=== PATIENT | female | born 1985 | race Caucasian/White ===

== ENCOUNTER 2018-08-30 09:31 | Emergency (ER) | payer OTHER ==
[2018-08-30 10:07] VITALS: BP 133/70
--- NOTE | 2018-08-30 10:22 | UC ---
Ear Complaint HPI - HPI Summary HPI Summary: Ear pressure with hearing loss for about a month. Some pressure but no pain. No recent cold or cough. No congestion or fever. - History of Current Complaint Chief Complaint: UCEar Stated Complaint: EAR COMPLAINT Time Seen by Provider: 08/30/18 10:13 Hx Obtained From: Patient ?: Yes - No contractions and baby is moving as normal. Onset/Duration: Gradual Onset, Lasting Weeks Severity Initially: Mild Severity Currently: Mild Pain Intensity: 0 Aggravating Factors: Nothing Alleviating Factors: Nothing Associated Signs/Symptoms: Positive: Hearing Loss. Negative: URI Symptoms - Allergies/Home Medications Allergies/Adverse Reactions: Allergies Allergy/AdvReac Type Severity Reaction Status Date / Time pantoprazole [From Protonix] AdvReac blurry Verified 08/30/18 10:07 vision wey AdvReac Constipatio Uncoded 08/30/18 10:07 n Home Medications: Home Medications NK [No Home Medications Reported] 08/30/18 [History Confirmed 08/30/18] PMH/Surg Hx/FS Hx/Imm Hx Previously Healthy: Yes - Surgical History Surgical History: Yes Surgery Procedure, Year, and Place: 2 L shoulder surgeries, 3 c-sections - Family History Known Family History: Positive: Other - No ENT related disease. - Social History Lives: With Family Alcohol Use: None Substance Use Type: None Smoking Status (MU): Never Smoked Tobacco Review of Systems All Other Systems Reviewed And Are Negative: Yes ENT: Positive: Ear Ache Is Patient Immunocompromised?: No Physical Exam Triage Information Reviewed: Yes Appearance: Well-Appearing, No Pain Distress, Well-Nourished Vital Signs: Initial Vital Signs Temp 98 F 08/30/18 10:04 Pulse 112 08/30/18 10:04 Resp 18 08/30/18 10:04 BP 133/70 08/30/18 10:04 Pulse Ox 100 08/30/18 10:04 Vital Signs Reviewed: Yes Eyes: Positive: Conjunctiva Clear ENT: Positive: Pharynx normal, Uvula midline, Other - Left tm normal but right tm obscured by wax. No canal tenderness, swelling or redness.. Negative: Pharyngeal erythema, Nasal congestion, Nasal drainage, TM bulging, TM dull, TM red, Tonsillar swelling, Tonsillar exudate, Trismus Neck: Positive: Supple, Nontender, No Lymphadenopathy Respiratory: Positive: Lungs clear, Normal breath sounds, No respiratory distress, No accessory muscle use. Negative: Respiratory distress, Decreased breath sounds, Accessory muscle use, Crackles, Rhonchi, Stridor, Wheezing Cardiovascular: Positive: No Murmur, Pulses Normal, Brisk Capillary Refill Abdomen Description: Positive: No Organomegaly, Soft. Negative: Distended, Guarding Musculoskeletal: Positive: Strength Intact, ROM Intact, No Edema Neurological: Positive: Alert, Muscle Tone Normal. Negative: Fatigued Psychological: Positive: Age Appropriate Behavior Skin: Negative: Rashes Re-Evaluation - Re-Evaluation First Eval Change: Improved - She can hear better now and less pressure. There is no canal redness and Tm is clear. Ear Complaint Course/Dx - Differential Dx/Diagnosis Differential Diagnosis/HQI/PQRI: Cerumen Impaction Provider Diagnosis: Cerumen impaction Discharge - Sign-Out/Discharge Documenting (check all that apply): Patient Departure All imaging exams completed and their final reports reviewed: No Studies - Discharge Plan Condition: Good Disposition: HOME Patient Education Materials: Cerumen Impaction (ED), Carbamide Peroxide (Into the ear) Referrals: No Primary Care Phys,NOPCP [Primary Care Provider] - - Billing Disposition and Condition Condition: GOOD Disposition: Home
== END 2018-08-30 10:42 | disposition home or self-care (01) ==
LOC: UCCORT 09:31
DX: H61.21 Impacted cerumen, right ear (principal); Z88.1 Allergy status to other antibiotic agents
CPT/HCPCS: 99202; G0463

== ENCOUNTER 2019-01-05 21:12 | Emergency (ER) | payer OTHER ==
[2019-01-05 22:11] VITALS: BP 107/43
--- NOTE | 2019-01-05 22:18 | UC ---
Back Pain HPI - HPI Summary HPI Summary: 33-year-old female her old female who had some burning while urinating. She states she also has some mild white vaginal discharge. No history of sexually transmitted diseases. - History of Current Complaint Chief Complaint: UCBackPain Stated Complaint: URINARY Time Seen by Provider: 01/05/19 22:17 Hx Obtained From: Patient ?: No Onset/Duration: Gradual Onset Timing: Intermittent Severity Initially: Mild Severity Currently: Mild Pain Intensity: 8 Character: Sharp - Patient describes a sharp pain at her urethra. She is sexually active with a female but they do not use any kind of equipment for sexual intercourse that could cause damage to the area. Aggravating Factor(s): Other - Some mild burning on urination. Alleviating Factor(s): Nothing Associated Signs And Symptoms: Positive: Negative - Allergies/Home Medications Allergies/Adverse Reactions: Allergies Allergy/AdvReac Type Severity Reaction Status Date / Time metronidazole [From Flagyl] Allergy Anaphylatic Verified 01/05/19 22:11 Shock pantoprazole [From Protonix] AdvReac blurry Verified 01/05/19 22:11 vision wey AdvReac Constipatio Uncoded 01/05/19 22:11 n PMH/Surg Hx/FS Hx/Imm Hx Previously Healthy: Yes - Surgical History Surgical History: Yes Surgery Procedure, Year, and Place: 2 L shoulder surgeries, 4 c-sections - Family History Known Family History: Positive: Other - No ENT related disease. - Social History Occupation: Student Alcohol Use: Rare Substance Use Type: None Smoking Status (MU): Never Smoked Tobacco Review of Systems All Other Systems Reviewed And Are Negative: Yes Genitourinary: Positive: Vaginal/Penile Burning - Patient describes the pain more as "pain at my urethra", Other - Mild burning on urination Is Patient Immunocompromised?: No Physical Exam Triage Information Reviewed: Yes Appearance: Well-Appearing, No Pain Distress, Well-Nourished Vital Signs: Initial Vital Signs Temp 98.7 F 01/05/19 22:05 Pulse 88 01/05/19 22:05 Resp 16 01/05/19 22:05 BP 107/43 01/05/19 22:05 Pulse Ox 98 01/05/19 22:05 Vital Signs Reviewed: Yes Neck exam: Normal Neck: Positive: Supple, Nontender, No Lymphadenopathy Respiratory Exam: Normal Respiratory: Positive: Lungs clear, Normal breath sounds, No respiratory distress, No accessory muscle use Cardiovascular: Positive: RRR, No Murmur, Pulses Normal, Brisk Capillary Refill Abdomen Description: Positive: Nontender, No Organomegaly, Soft Bowel Sounds: Positive: Present Pelvic Exam: Positive: External Exam Normal, Bimanual Exam Normal, No Cerv. Motion Tender, Discharge - Small amount of white milky discharge in the vaginal canal. Cultures were obtained.. Negative: Lesions, Tender w/ Cervical Motion, Tender Adnexa Musculoskeletal Exam: Normal Neurological Exam: Normal Psychological Exam: Normal Skin Exam: Normal - At this point in time I do not see any kind of skin breakdown I was able to visualize the vaginal area and the urethral area and there is no abrasions or any other skin breakdown. Back Pain Course/Dx - Course Course Of Treatment: Patient was comfortable here. Urinalysis was negative urine test was negative. At this point in time I did advise her to avoid using soaps in the genital area, no sexual intercourse until it cleared and until cultures come back. Increase fluids. Follow up with her [employer] provider if no improvement in one week. - Differential Dx/Diagnosis Provider Diagnosis: Dysuria Discharge - Sign-Out/Discharge Documenting (check all that apply): Patient Departure All imaging exams completed and their final reports reviewed: No Studies - Discharge Plan Condition: Good Disposition: HOME Referrals: No Primary Care Phys,NOPCP [Primary Care Provider] - - Billing Disposition and Condition Condition: GOOD Disposition: Home
--- NOTE | 2019-01-05 22:50 | UC ---
Back Pain HPI - HPI Summary HPI Summary: 33-year-old female who has had some chronic low back pain over the past couple of weeks. 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 - History of Current Complaint Chief Complaint: UCBackPain Stated Complaint: URINARY Time Seen by Provider: 01/05/19 22:17 Hx Obtained From: Patient ?: No Onset/Duration: Gradual Onset Timing: Intermittent Severity Initially: Mild Severity Currently: Mild Pain Intensity: 8 Aggravating Factor(s): Movement, Lifting, Bending Alleviating Factor(s): Nothing Associated Signs And Symptoms: Positive: Negative, Other. Negative: Weakness, Numbness, Tingling, Bladder Incontinence, Bowel Incontinence - Denies any saddle anesthesia no numbness or tingling in her extremities. - Allergies/Home Medications Allergies/Adverse Reactions: Allergies Allergy/AdvReac Type Severity Reaction Status Date / Time metronidazole [From Flagyl] Allergy Anaphylatic Verified 01/05/19 22:11 Shock pantoprazole [From Protonix] AdvReac blurry Verified 01/05/19 22:11 vision wey AdvReac Constipatio Uncoded 01/05/19 22:11 n PMH/Surg Hx/FS Hx/Imm Hx Previously Healthy: Yes - Surgical History Surgical History: Yes Surgery Procedure, Year, and Place: 2 L shoulder surgeries, 4 c-sections - Family History Known Family History: Positive: Other - No ENT related disease. - Social History Occupation: Student Alcohol Use: Rare Substance Use Type: None Smoking Status (MU): Never Smoked Tobacco Review of Systems All Other Systems Reviewed And Are Negative: Yes Motor: Positive: Negative Neurovascular: Positive: Negative Musculoskeletal: Positive: Other: - Mild pain across lower back. Neurological: Positive: Negative - Denies any saddle anesthesia. Is Patient Immunocompromised?: No Physical Exam Triage Information Reviewed: Yes Appearance: Well-Appearing, No Pain Distress, Well-Nourished Vital Signs: Initial Vital Signs Temp 98.7 F 01/05/19 22:05 Pulse 88 01/05/19 22:05 Resp 16 01/05/19 22:05 BP 107/43 01/05/19 22:05 Pulse Ox 98 01/05/19 22:05 Vital Signs Reviewed: Yes Neck exam: Normal Neck: Positive: Supple, Nontender, No Lymphadenopathy Respiratory Exam: Normal Respiratory: Positive: Lungs clear, Normal breath sounds, No respiratory distress, No accessory muscle use Cardiovascular: Positive: RRR, No Murmur, Pulses Normal, Brisk Capillary Refill Abdomen Description: Positive: Nontender, No Organomegaly, Soft Bowel Sounds: Positive: Present Musculoskeletal Exam: Normal Musculoskeletal: Positive: Other: - Mild pain on palpation across lower back. Mildly positive straight leg raise on the right negative on the left. Peripheral pulses neuro sensation capillary refill. Neurological Exam: Normal Neurological: Positive: Alert, Muscle Tone Normal Psychological Exam: Normal Skin Exam: Normal Back Pain Course/Dx - Course Course Of Treatment: Patient has been comfortable here. Her urinalysis is negative. I think she has mild sciatica on the right and she is to avoid lifting. She may apply heat to the sore area take Tylenol for pain. She is presently breast-feeding therefore can't take Motrin. She is to follow-up with her primary care provider if no improvement in 3 or 4 days. - Differential Dx/Diagnosis Provider Diagnosis: Low back strain Discharge - Sign-Out/Discharge Documenting (check all that apply): Patient Departure All imaging exams completed and their final reports reviewed: No Studies - Discharge Plan Condition: Good Disposition: HOME Patient Education Materials: Sciatica (ED), Lower Back Exercises (ED) Referrals: [facility] [Outside] No Primary Care Phys,NOPCP [Primary Care Provider] - Additional Instructions: Avoid excessive lifting, pushing, pulling, bending or twisting. Apply heat or ice to the sore areas whichever feels better. Definite follow-up with your primary care provider if no improvement in 3 or 4 days. - Billing Disposition and Condition Condition: GOOD Disposition: Home - Attestation Statements Provider Attestation: Per institutional requirements, I have reviewed the chart, however, I was not consulted specifically or made aware of this patient by the midlevel provider. I did not personally evaluate, interact with , or disposition this patient.
== END 2019-01-05 22:56 | disposition home or self-care (01) ==
LOC: UCCORT 21:12
DX: S39.012A Strain of muscle, fascia and tendon of lower back, initial encounter (principal); G89.29 Other chronic pain; Z91.09 Other allergy status, other than to drugs and biological substances; Z88.8 Allergy status to other drugs, medicaments and biological substances; X58.XXXA Exposure to other specified factors, initial encounter; Y92.9 Unspecified place or not applicable
CPT/HCPCS: 81003; 99211; G0463

== ENCOUNTER 2019-06-04 18:35 | Emergency (ER) | payer OTHER ==
--- OUTSIDE RECORDS SUMMARY | 2019-06-04 18:46 | XMS REPORT | Continuity of Care Document ---
:1985 External Reference #:[id number] Author Name Negrita Pike NP Address [address] [place] [address] Care Team Providers Name Role Phone Negrita Pike NP. Care Team Information Hepatology Physician [phone] Problems Description No Information Available Social History Type Date Description Comments Sex Unknown ETOH Use Denies alcohol use Tobacco Use Start: Unknown Patient has never smoked Recreational Drug Use Never Used Drugs Smoking Status Reviewed: 05/27/19 Patient has never smoked Allergies, Adverse Reactions, Alerts Active Allergies Reaction Severity Comments Date Flagyl 01/05/2014 Protonix 01/22/2017 Sulfamethoxazole / Trimethoprim Night Sweat,Rash And Not 04/30/2019 Feeling Well Gabapentin 05/04/2019 Bactrim Hives 05/27/2019 Medications Active Medications SIG Qnty Indications Ordering Provider Date Bupropion 1 by mouth 60tabs F33.1 Omid Patterson 05/27/2019 Hydrochloride ER (SR) twice a day MD Cami 150mg Tablets ER 12HR Albuterol Sulfate HFA inhale two 18units J45.20 Omid Patterson 2018 puffs by mouth MD Cami 108(90Base) mcg/Act every 4 hours Aerosol as needed History Medications No Active Medications Unknown 05/27/2019 - 05/27/2019 Tetracycline HCL 1 by mouth four 28caps Sanjiv Flowers, 04/30/2019 - 250mg times a day x 7 M.D. 05/07/2019 Capsules days Doxycycline Hyclate 1 by mouth twice 20tabs Sanjiv Flowers, 04/30/2019 - 100mg a day M.D. 05/10/2019 Tablets Sulfamethoxazole/Trimet 1 by mouth twice 14tabs Sanjiv Flowers, 2018 - hoprim DS a day Ursula 04/30/2019 800-160mg Tablets Medications Administered in Office Medication SIG Qnty Indications Ordering Provider Date Medroxyprogesterone Acetate, 1MG Sanjiv Flowers M.D. 11/01/2016 - Use 150MG For Depo-Provera Injection Medroxyprogesterone Acetate, 1MG Sanjiv Flowers M.D. 08/16/2016 - Use 150MG For Depo-Provera Injection Immunizations Description No Information Available Vital Signs Date Vital Result Comment 05/27/2019 2:36pm Weight 250.00 lb Heart Rate 92 /min BP Systolic 126 mmHg BP Diastolic 70 mmHg Respiratory Rate 16 /min Height 67 inches 5'7" BMI (Body Mass Index) 39.2 kg/m2 05/21/2019 1:18pm Weight 254.00 lb Heart Rate 66 /min BP Systolic Sitting 124 mmHg BP Diastolic Sitting 64 mmHg Height 67 inches 5'7" BMI (Body Mass Index) 39.8 kg/m2 Last Menstrual Period [id number] Results Test Date Facility Test Result H/L Range Note Hemoglobin A1c 05/21/2019 [facility] Hemoglobin A1c @ 5.1 % (4.0-6.0) 5 [phone] Est Average Glucose 100 mg/dL Z#FSH/LH Evaluation 05/21/2019 [facility] FSH @ 4.6 mIU/mL 2 [phone] LH @ 2.5 mIU/mL 3 Laboratory test finding 05/21/2019 [facility] Prolactin @ 8.3 ng/mL 4 [phone] Free Thyroxine @ 0.94 ng/dL (0.76-1.46) TSH,Ultrasensitive @ 1.300 mIU/L (0.360-4.170) Dhea Sulfate @ 122 g/dL (32-270) 17 Oh Progesterone 05/21/2019 [facility] 17 Oh Progesterone 14.08 5 Reference Lab [phone] Testosterone Free & Total 05/21/2019 [facility] Testosterone 15 6 Female/Child [phone] Sex Binding Globulin 105 nmol/L 7 Testosterone Free 1.1 Low 8 Wound Culture-RL 04/23/2019 [facility] Culture SEE NOTE 9 CBC With Diff 04/01/2019 [facility] WBC 9.0 10*3/uL (4.1-11.0) [phone] RBC 4.95 10*6/uL (4.00-5.40) HGB 13.4 g/dL (12.0-16.0) HCT 39.1 % (36.0-47.0) MCV 79.0 fL Low (80.0-95.0) MCH 27.0 pg (27.0-32.0) MCHC 34.2 g/dL (32.0-36.0) RDW 15.0 % High (10.5-14.5) PLT 252 10*3/uL (150-450) MPV 10.2 fL (7.1-10.7) Neut % 67.9 % (35.0-75.0) Lymph % 23.7 % (16.0-52.0) Charles % 6.5 % (0.0-8.0) Eos % 1.2 % (0.0-5.0) Baso % 0.7 % (0.0-4.0) Neut # 6.1 10*3/uL (1.8-7.7) Lymph # 2.1 10*3/uL (1.2-4.8) Charles # 0.6 10*3/uL (0.0-0.8) Eos # 0.1 10*3/uL (0.0-0.5) Baso # 0.1 10*3/uL (0.0-0.2) Laboratory test 04/01/2019 [facility] HCG, Qual. NEGATIVE (Neg) finding [phone] Serum BMP (Basic) 04/01/2019 [facility] Sodium 144 mmol/L (136-145) [phone] Potassium 3.9 mmol/L (3.6-5.2) Chloride 114 mmol/L High (100-108) Co2 21 mmol/L Low (22-31) Anion Gap 9 mmol/L (7-16) Urea Nitrogen 9 mg/dL (7-24) Creatinine 0.76 mg/dL (0.60-1.00) BUN/Creat Ratio 11.8 RATIO (10.0-20.0) Glucose 85 mg/dL (70-99) Calcium 9.1 mg/dL (8.4-10.2) GFR >60 ml/min/1.73m2 (>59) GFR ( Amer) >60 ml/min/1.73m2 (>59) GFR Interpretation <SEE NOTE> 10 1 Performed using Siemens [place] immunoassay. Care must be taken when interpreting HbA1c results in patients with a hemoglobin variant or decreased erythrocyte lifespan. Values 5.7 - 6.4% suggest prediabetes. Values >=6.5% are diagnostic for diabetes. REFERENCE: DIABETES CARE 2018: 41(S13-S27). 2 FSH Reference Range: Males 0.7 - 10.8 mIU/mL Females, Menstruating Follicular Phase 2.3 - 12.6 mIU/mL Mid cycle Peak 5.2 - 17.5 mIU/mL Luteal Phase 1.7 - 12.9 mIU/mL Females, Postmenopausal On Menopausal Hormone Therapy (MHT) 5.9 - 72.8 mIU/mL Not on MHT 12.7 - 132.2 mIU/mL 3 LH Reference Range: Males 1.2 - 10.6 mIU/mL Females, Menstruating Follicular Phase 1.9 - 26.2 mIU/mL Mid cycle Peak 22.8 - 76.1 mIU/mL Luteal Phase 0.6 - 16.6 mIU/mL Females, Postmenopausal On Menopausal Hormone Therapy (MHT) 1.1 - 52.4 mIU/mL Not on MHT 8.6 - 61.8 mIU/mL 4 Prolactin Reference Range: Males 2.5 - 17.4 ng/mL Females Non- 2.2 - 30.3 ng/mL 8.1 - 347.6 ng/mL Postmenopausal 0.7 - 31.5 ng/mL 5 Reference range: <=206.00 Unit: ng/dL INTERPRETIVE INFORMATION for 17-Hydroxyprogesterone in females: Follicular 15 to 70 ng/dL Luteal 35 to 290 ng/dL REFERENCE INTERVAL: 17-Hydroxyprogesterone Qnt, HPLC-MS/MS Access complete set of age- and/or gender-specific reference intervals for this test in the [facility] Test Directory ([employer]). Test developed and characteristics determined by [employer]. See Compliance Statement B: [employer]/CS Performed by [employer], [address] [facility], [place] [address] [email or web address], Gerald Campos MD, Lab. Director 6 Reference range: 9 to 55 Unit: ng/dL Total Testosterone, Females 18 years and older Premenopausal 9-55 ng/dL Postmenopausal 5-32 ng/dL REFERENCE INTERVAL: Testosterone, LC-MS/MS Access complete set of age- and/or gender-specific reference intervals for this test in the [employer] Test Directory ([employer]). Test developed and characteristics determined by [employer]. See Compliance Statement B: [email or web address] 7 Reference range: 30 to 135 Unit: nmol/L REFERENCE INTERVAL: Sex Hormone Binding Globulin Access complete set of age- and/or gender-specific reference intervals for this test in the [employer] Test Directory ([employer]). 8 Reference range: 1.3 to 9.2 Unit: pg/mL To convert to pmol/L, multiply pg/mL by 3.47 The concentration of Free Testosterone is derived from a mathematical expression based on the constant for the binding of testosterone to sex hormone binding globulin. Testosterone, Free LC-MS/MS Reference Interval for Females 18 years and older Postmenopausal: 0.6 - 3.8 pg/mL REFERENCE INTERVAL: Testosterone, Free LC-MS/MS Access complete set of age- and/or gender-specific reference intervals for this test in the [employer] Test Directory ([employer]). Test developed and characteristics determined by [employer]. See Compliance Statement B: [email or web address] Performed by [employer], [address] [place] [address] [email or web address], Gerald Campos MD, Lab. Director 9 SPECIMEN DESCRIPTION SURGICAL WOUND SPECIAL REQUESTS NONE GRAM STAIN RARE (<1/LPF) WHITE BLOOD CELLS MANY (>10/OIF) GRAM POSITIVE COCCI CULTURE RESULTS MANY STAPHYLOCOCCUS AUREUS MANY DIPHTHEROIDS REPORT STATUS FINAL 04/25/2019 ORGANISM STAPHYLOCOCCUS AUREUS METHOD KEO CLINDAMYCIN 0.25 RESISTANT THIS ISOLATE WAS TESTED FOR INDUCIBLE CLINDAMYCIN RESISTANCE. ERYTHROMYCIN >=8 RESISTANT LEVOFLOXACIN 0.25 SUSCEPTIBLE LINEZOLID 2 SUSCEPTIBLE OXACILLIN 0.5 SUSCEPTIBLE OXACILLIN PREDICTS RESULTS FOR PENICILLINASE RESISTANT PENICILLINS, BETA LACTAM/BETALACTAMASE INHIBITOR COMBINATIONS,CEPHALOSPORINS (WITH THE EXCEPTION OF CEPHALOSPORINS WITH ANTI MRSA ACTIVITY), AND CARBAPENEMS PER CLSI STANDARDS. TETRACYCLINE <=1 SUSCEPTIBLE VANCOMYCIN 1 SUSCEPTIBLE TRIMETH/SULFA <=.5/9.5 SUSCEPTIBLE DAPTOMYCIN 0.5 SUSCEPTIBLE CEFTAROLINE 0.25 SUSCEPTIBLE Unless otherwise specified, testing performed by [facility] [address] [place] [id number] 10 NORMAL KIDNEY FUNCTION OR MILD DISEASE - GFR >OR= 60 CHRONIC KIDNEY DISEASE - GFR 15 - 59 RENAL FAILURE - GFR <15 Est. GFR calculation based on the MDRD study equation, which assumes a steady state for creatinine. Est. GFR should not be used for medication dosing. Procedures Date Code Description Status 04/10/2019 77041 Laproscopy/Removal Adenexylstructures Completed 04/10/2019 25096 Hysteroscopy, Biopsy W,W/O D&C Completed Medical Devices Description No Information Available Encounters Type Date Location Provider Dx Diagnosis Office Visit 05/27/2019 Negrita Aparicio NP F33.1 Major depressive 2:20p Medical Care disorder, recurrent, moderate F41.1 Generalized anxiety disorder Z71.3 Dietary counseling and surveillance J45.20 Mild intermittent asthma, uncomplicated E66.9 Obesity, unspecified Z68.39 Body mass index (BMI) 39.0-39.9, adult Office Visit 05/21/2019 1:15p Sanjiv Quach, N92.6 Irregular M.D. menstruation, unspecified Z64.1 Problems related to multiparity Office Visit 04/23/2019 1:15p Sanjiv Quach N92.6 Irregular M.D. menstruation, unspecified Z64.1 Problems related to multiparity Office Visit 02/24/2019 8:30a Sanjiv Quach N92.6 Irregular M.D. menstruation, unspecified Z64.1 Problems related to multiparity Z30.09 Encounter for ot general coun and advice on contraception Z80.3 Family history of malignant neoplasm of breast Assessments Date Code Description Provider 05/27/2019 F33.1 Major depressive disorder, recurrent, Negrita Pike, PHOTOGRAPHY INTERN moderate 05/27/2019 F41.1 Generalized anxiety disorder Negrita Pike, PHOTOGRAPHY INTERN 05/27/2019 Z71.3 Dietary counseling and surveillance Negrita Pike, PHOTOGRAPHY INTERN 05/27/2019 J45.20 Mild intermittent asthma, uncomplicated Negrita Pike, PHOTOGRAPHY INTERN 05/27/2019 E66.9 Obesity, unspecified Negrita Pike, PHOTOGRAPHY INTERN 05/27/2019 Z68.39 Body mass index (BMI) 39.0-39.9, adult Negrita Pike, PHOTOGRAPHY INTERN 05/21/2019 N92.6 Irregular menstruation, unspecified Sanjiv Flowers M.D. 05/21/2019 Z64.1 Problems related to multiparity Sanjiv Flowers M.D. 04/23/2019 N92.6 Irregular menstruation, unspecified Sanjiv Flowers M.D. 04/23/2019 Z64.1 Problems related to multiparity Sanjiv Flowers M.D. 04/10/2019 N92.6 Irregular menstruation, unspecified Sanjiv Flowers M.D. 04/10/2019 Z64.1 Problems related to multiparity Sanjiv Flowers M.D. 04/10/2019 Z30.2 Encounter for sterilization Sanjiv Flowers M.D. 04/01/2019 N92.6 Irregular menstruation, unspecified Sanjiv Flowers M.D. 04/01/2019 Z64.1 Problems related to multiparity Sanjiv Flowers M.D. 04/01/2019 Z30.09 Encounter for other general counseling and Sanjiv Flowers M.D. advice on contrac 02/24/2019 N92.6 Irregular menstruation, unspecified Sanjiv Flowers M.D. 02/24/2019 Z64.1 Problems related to multiparity Sanjiv Flowers M.D. 02/24/2019 Z30.09 Encounter for other general counseling and Sanjiv Flowers M.D. advice on contraception 02/24/2019 Z80.3 Family history of malignant neoplasm of Sanjiv Flowers M.D. breast Plan of Treatment Future Appointment(s):06/25/2019 11:00 am - Negrita Pike NP at [facility]08/20/2019 11:30 am - Sanjiv Flowers M.D. at [facility]/2019 - Negrita Pike NPF33.1 Major depressive disorder, recurrent, moderateNew Medication:Bupropion Hydrochloride ER (SR) 150 mg - 1 by mouth twice a dayComments:Increase exercise, as endorphins are a helpful natural antidepressant. To consider counseling as needed. Information packet on counselors in the area and resources available given Instructed on new medication and to take as prescribed Call the office with any questions concerns or medication s/eIf suicidal or homicidal thoughts occur, contact office immediately or go to ER/CPEP. Follow up 1 fgjpqK50.1 Generalized anxiety disorderComments:Managed with alternative methods at his timeStates it is related to her social/ family lifeZ71.3 Dietary counseling and surveillanceComments:15 minutes spent discussing new dietary recommendations Pt was given literature and a sample weekly meal plan Instructed on new paradigm in weight loss Stresing to patient to eliminate carbs in diet increasing healthy fats and proteins To decrease/ eliminate bad carbs such as starches and processed foods and increase healthy carbs that are plant based and healthy fats that are animal based Drink half body weight in water - cutting out soda and artificial sweeteners Discussed online resources andsupport groups that will help Will cont to monitor Pt will follow up in 1 weekJ45.20 Mild intermittent asthma, uncomplicatedNew Medication:Albuterol Sulfate HFA 108(90 Base) mcg/Act - inhale two puffs by mouth every 4 hours as neededComments: Inhaler as directed for cough wheezing or SOBE66.9 Obesity, unspecifiedComments: Educated on importance of risks associated with obesity and the potential benefits with weight loss for management of chronic comorbidities. Reinforced lifestyle modification through diet and regular exercise. Encouraged reading nutrition labels and meal preparation for weight loss management.Z68.39 Body mass index (BMI) 39.0-39.9, adultAllFollow up:PE 4-6 weeks with fasting labs Functional Status Description No Information Available Mental Status Description No Information Available Referrals Description No Information Available
[2019-06-04 19:26] VITALS: BP 122/63
[2019-06-04] MEDS ORDERED: Amoxicillin PO (*) 500 MG CAP PO ONE (20:21)
--- NOTE | 2019-06-04 20:21 | UC ---
Throat Pain/Nasal Shadi HPI - HPI Summary HPI Summary: Pt presents with c/o nasal congestion, sore throat, sinus pressure and pain, body aches, chills, that began today - History of Current Complaint Chief Complaint: UCGeneralIllness Stated Complaint: SORE THROAT, EAR PAIN, HEADACHE, VOMITING Time Seen by Provider: 06/04/19 20:02 Hx Obtained From: Patient ?: No Onset/Duration: Lasting Days, Still Present, Worse Since - onset Severity: Moderate Pain Intensity: 3 Cough: None Associated Signs & Symptoms: Positive: Dysphagia, Sinus Discomfort, Fever - subjective - Epiglottits Risk Factors Epiglottis Risk Factors: Sudden Onset - Allergies/Home Medications Allergies/Adverse Reactions: Allergies Allergy/AdvReac Type Severity Reaction Status Date / Time metronidazole [From Flagyl] Allergy Anaphylatic Verified 06/04/19 19:26 Shock sulfamethoxazole Allergy Rash Verified 06/04/19 19:26 [From Bactrim] trimethoprim [From Bactrim] Allergy Rash Verified 06/04/19 19:26 pantoprazole [From Protonix] AdvReac blurry Verified 06/04/19 19:26 vision wey AdvReac Constipatio Uncoded 06/04/19 19:26 n Home Medications: Home Medications Bupropion XL* [Wellbutrin XL *] 150 mg PO BID 06/04/19 [History Confirmed ] PMH/Surg Hx/FS Hx/Imm Hx Previously Healthy: Yes - Surgical History Surgical History: Yes Surgery Procedure, Year, and Place: 2 L shoulder surgeries, 4 c-sections. tubal ligation with removal - Family History Known Family History: Positive: Other - No ENT related disease. - Social History Occupation: Employed Full-time Lives: With Family Alcohol Use: Rare Substance Use Type: None Smoking Status (MU): Never Smoked Tobacco Have You Smoked in the Last Year: No - Immunization History Vaccination Up to Date: Yes Review of Systems All Other Systems Reviewed And Are Negative: Yes Constitutional: Positive: Fever, Chills, Fatigue Skin: Positive: Negative Eyes: Positive: Negative ENT: Positive: Sore Throat, Sinus Congestion, Sinus Pain/Tenderness Respiratory: Positive: Negative Cardiovascular: Positive: Negative Gastrointestinal: Positive: Negative Genitourinary: Positive: Negative Motor: Positive: Negative Neurovascular: Positive: Negative Musculoskeletal: Positive: Myalgia Neurological: Positive: Negative Psychological: Positive: Negative Is Patient Immunocompromised?: No Physical Exam Triage Information Reviewed: Yes Appearance: Ill-Appearing Vital Signs: Initial Vital Signs Temp 99.5 F 06/04/19 19:21 Pulse 91 06/04/19 19:21 Resp 16 06/04/19 19:21 BP 122/63 06/04/19 19:21 Pulse Ox 99 06/04/19 19:21 Vital Signs Reviewed: Yes Eye Exam: Normal ENT: Positive: Pharyngeal erythema, Nasal congestion, Tonsillar swelling, Tonsillar exudate, Sinus tenderness Dental Exam: Normal Neck exam: Normal Respiratory: Positive: No respiratory distress Cardiovascular Exam: Normal Musculoskeletal Exam: Normal Neurological Exam: Normal Psychological Exam: Normal Skin Exam: Normal Throat Pain/Nasal Course/Dx - Differential Dx/Diagnosis Differential Diagnosis/HQI/PQRI: Sinusitis, Tonsillitis, URI Provider Diagnosis: Sinusitis Discharge ED - Sign-Out/Discharge Documenting (check all that apply): Patient Departure All imaging exams completed and their final reports reviewed: No Studies - Discharge Plan Condition: Stable Disposition: HOME Prescriptions: Amoxicillin PO (*) [Amoxicillin 875 MG (*)] 875 mg PO Q12H #20 tab Patient Education Materials: Sinusitis (ED) Referrals: Negrita Pike HOSTESS HOST [Primary Care Provider] - If Needed - Billing Disposition and Condition Condition: STABLE Disposition: Home
== END 2019-06-04 20:30 | disposition home or self-care (01) ==
LOC: UCCORT 18:35
DX: J32.9 Chronic sinusitis, unspecified (principal)
CPT/HCPCS: 99212; A9270-GY; G0463